=== PATIENT | male | born 1965 | race Caucasian/White ===

== ENCOUNTER 2022-05-18 12:28 | Emergency (ER) | payer BC ==
--- OUTSIDE RECORDS SUMMARY | 2022-05-18 12:31 | XMS REPORT | Continuity of Care Document ---
:[address] [facility] t Address [address] [place] [address] Care Team Providers Name Role Phone DR CRYSTAL TRUJILLO Attending Clinician Unavailable DR CRYSTAL TRUJILLO Admitting Clinician Unavailable Problems This patient has no known problems. Allergies, Adverse Reactions, Alerts Allergy Allergy Status Severity Reaction(s) Onset Inactive Treating Comm ents Source Name Type Date Date Clinician No Known DA Active [facility] Medications This patient has no known medications. Vital Signs Vital Name Observation Time Observation Value Comments Source Height 2020-12-30 04:23:00 180.34 CM Weight 2020-12-30 04:23:00 120.65 KG Height 2020-12-16 09:21:00 180.34 CM Weight 2020-12-16 09:21:00 117.93 KG Procedures Procedure Date / Time Performed Performing Clinician [facility] EXCISION OF LEFT 2020-12-30 00:00:00 Elisabet [facility] ical METATARSAL OPEN Center Encounters Start End Encounter Admission Attending Care Care Encounter Source Date/Time Date/Time Type Type Clinicians Facility Department ID 2020-12-30 2020-12-30 Outpatient Tonny TRUJILLO [facility]ny [place] [id number] Elisabet 03:57:00 06:07:00 CRYSTAL [facility] 2015-09-06 2015-09-06 Outpatient [facility] MHIE [id number] [address] 10:15:00 10:15:00 03 martinez Gaspar 2015-05-26 2015-05-26 Outpatient MHIE [facility]IE [id number] [facility] 11:00:00 11:00:00 02 martinez Gaspar 2015-04-29 2015-04-29 Outpatient [facility]IE [facility]IE [id number] [facility] 09:00:00 09:00:00 01 martinez Gaspar Results This patient has no known results.
--- NOTE | 2022-05-18 13:12 | RAD REPORT ---
EXAM DESCRIPTION: RAD - Chest Single View - 05/18/2022 12:57 pm CLINICAL HISTORY: cough, fever COMPARISON: None TECHNIQUE: AP portable chest image was obtained 05/18/2022 12:57 pm . FINDINGS: No focal mass consolidation. Interstitial markings are prominent with the baseline unknown . A mild viral infiltrate could be masked in this setting. No hilar mass or lymphadenopathy seen. Hea rt and vasculature are normal. No measurable pleural effusion and no pneumothorax. No acute bony abno rmality seen. No acute aortic findings suspected. IMPRESSION: No focal acute cardiopulmonary process. Prominence of the interstitial pattern on this baseline examination could mask minimal edema or infil trate.
[2022-05-18 13:25] LABS: SARS-COV-2 RT PCR NEGATIVE (NEGATIVE)
[2022-05-18] MEDS ORDERED: IBUPROFEN 400 MG TAB ONE (13:28)
[2022-05-18] MEDS ORDERED: dexAMETHasone 10 MG/ML VIAL ONE (13:28)
[2022-05-18] MEDS ORDERED: MAGNESIUM SULFATE 1 gm IVPB 1 GM/100 ML BAG IV ONE (13:29)
[2022-05-18] MEDS ORDERED: Ringers Lactate 1,000 ML IV ONE (13:29)
[2022-05-18] MEDS ORDERED: LEVALBUTEROL 1.25 MG/3 ML NEB ONE (13:29)
[2022-05-18 13:35] LABS: Absolute Lymphocytes (CBC) 1.4 K/uL (0.7-4.9); Hematocrit 43.3 % (39.6-49.0); MCV 95.8 fL (80-100); MPV 7.9 fL (7.6-11.3); RBC Red Blood Cell Count 4.51 M/uL (4.33-5.43)
[2022-05-18 13:55] LABS: Albumin 3.3 g/dL (3.4-5.0); Bilirubin Total 0.4 mg/dL (0.2-1.0); Potassium 4.2 mmol/L (3.5-5.1)
--- NOTE | 2022-05-18 14:41 | ER ---
Nurse's Notes [facility] [place], [place] Name: Joe Lucas Age: 56 yrs Sex: Male : 1965 Arrival Date: 05/18/2022 Time: 12:31 Bed 13 Private MD: Jagdish Manning E Diagnosis: Cough Presentation: 05/18 12:42 Chief complaint: Patient states: strong hacking cough x 3-4 weeks. Has been seen at [facility] twice and diagnosed with URI and bronchitis. Reports nothing has made the cough better and now is coughing so forcefully, it is making him vomit. Denies fever. Coronavirus screen: Vaccine status: Patient reports receiving the 2nd dose of the covid vaccine. Client denies travel out of the [place] in the last 14 days. Ebola Screen: Patient negative for fever greater than or equal to 101.5 degrees Fahrenheit, and additional compatible Ebola Virus Disease symptoms Patient denies exposure to infectious person. Patient denies travel to an Ebola-affected area in the 21 days before illness onset. Initial Sepsis Screen: Does the patient meet any 2 criteria? RR > 20 per min. HR > 90 bpm. Yes Does the patient have a suspected source of infection? No. Patient's initial sepsis screen is negative. Risk Assessment: Do you want to hurt yourself or someone else? Patient reports no desire to harm self or others. Onset of symptoms was April 26, 2022. 12:42 Method Of Arrival: Ambulatory [facility] 12:42 Acuity: ANTONIO 3 [facility] Triage Assessment: 12:44 General: Appears in no apparent distress. ill, Behavior is calm, cooperative. Pain: [facility] Complains of pain in chest Pain does not radiate. Pain currently is 6 out of 10 on a pain scale. Quality of pain is described as burning, aching, Pain began 3-4 weeks ago with cough. Respiratory: Reports cough that is pain with cough Airway is patent Respiratory effort is even, unlabored, Breath sounds are diminished the patient has mild shortness of breath. Historical: - Allergies: 12:44 No Known Allergies; [facility] - Home Meds: 12:44 Unable to obtain [Active]; kb3 - PMHx: 12:44 Hypertensive disorder; Hypercholesterolemia; Low-T; kb3 - PSHx: 12:44 Foot sx; kb3 - Immunization history:: Adult Immunizations up to date, Client reports receiving the 2nd dose of the Covid vaccine, Last tetanus immunization: unknown. - Social history:: Smoking status: Patient denies any tobacco usage or history of. Screenin:58 [facility] ED Fall Risk Assessment (Adult) History of falling in the last 3 months, db including since admission No falls in past 3 months (0 pts) Confusion or Disorientation No (0 pts) Intoxicated or Sedated No (0 pts) Impaired Gait No (0 pts) Mobility Assist Device Used No (0 pt) Altered Elimination No (0 pt) Score/Fall Risk Level 0 - 2 = Low Risk. Abuse screen: Denies threats or abuse. Denies injuries from another. Nutritional screening: No deficits noted. Tuberculosis screening: No symptoms or risk factors identified. Assessment: 13:58 Reassessment: Patient appears in no apparent distress at this time. Patient and/or db family updated on plan of care and expected duration. Pain level reassessed. Patient is alert, oriented x 3, equal unlabored respirations, skin warm/dry/pink. patient with cough and flu like symptoms x 1 month on antibiotics gradually getting worse. General: Appears in no apparent distress. comfortable, Behavior is calm, cooperative, appropriate for age, quiet. Pain: Denies pain. Neuro: No deficits noted. Neuro: Level of Consciousness is awake, alert, obeys commands, Oriented to person, place, time, situation, Appropriate for age. Cardiovascular: No deficits noted. Respiratory: Reports shortness of breath cough that is Breath sounds are diminished bilaterally. GI: No deficits noted. No signs and/or symptoms were reported involving the gastrointestinal system. : No deficits noted. No signs and/or symptoms were reported regarding the genitourinary system. EENT: No deficits noted. No signs and/or symptoms were reported regarding the EENT system. Derm: No deficits noted. No signs and/or symptoms reported regarding the dermatologic system. Vital Signs: 12:42 BP 151 / 87; Pulse 104; Resp 24; Temp 98.5; Pulse Ox 97% ; Weight 117.93 kg; Height 5 kb3 ft. 11 in. (180.34 cm); Pain 6/10; 13:00 BP 132 / 75; Pulse 88; Resp 18; Pulse Ox 94% on R/A; db 12:42 Body Mass Index 36.26 (117.93 kg, 180.34 cm) kb3 NIH Stroke Scale Scores: 12:50 NIHSS Score: 0 db ED Course: 12:31 Patient arrived in ED. as 12:31 Jagdish Manning MD is Private Physician. as 12:31 Devonte Bingham PA is PHCP. jmm 12:31 Devin Jeffries DO is Attending Physician. jmm 12:44 Triage completed. kb3 12:44 Arm band placed on right wrist. kb3 12:59 Chest Single View XRAY In Process Unspecified. EDMS 13:06 Evelyn Corral, RN is Primary Nurse. db 13:20 Inserted saline lock: 20 gauge in left antecubital area, using aseptic technique. Blood db collected. 13:20 First set of blood cultures drawn. db 13:40 Second set of blood cultures drawn by me. db 13:58 Bed in low position. Call light in reach. Side rails up X 1. Pulse ox on. NIBP on. db 13:58 No provider procedures requiring assistance completed. db 15:15 IV discontinued, intact, bleeding controlled, No redness/swelling at site. db Administered Medications: 13:30 Drug: Xopenex (levalbuterol) (3) 1.25 mg Route: Inhalation; db 15:00 Follow up: Response: No adverse reaction db 13:30 Drug: Decadron - Dexamethasone 10 mg Route: IVP; Site: left antecubital; db 15:26 Follow up: Response: No adverse reaction db 13:31 Drug: Ibuprofen 400 mg Route: PO; db 15:00 Follow up: Response: No adverse reaction db 13:35 Drug: Lactated Ringers Solution 1000 ml Route: IV; Rate: 1000 bolus; Site: left db antecubital; 15:26 Follow up: Response: No adverse reaction; IV Status: Completed infusion; IV Intake: db 1000ml 13:36 Drug: Magnesium Sulfate 1 grams Route: IVPB; Infused Over: 1 hrs; Site: left db antecubital; 15:00 Follow up: Response: No adverse reaction; IV Status: Completed infusion; IV Intake: db 100ml Medication: 13:58 VIS not applicable for this client. db Intake: 15:00 IV: 100ml; Total: 100ml. db 15:26 IV: 1000ml; Total: 1100ml. db Outcome: 14:40 Discharge ordered by . tatianna 15:15 Discharged to home ambulatory, with family. db 15:15 Condition: stable 15:15 Discharge instructions given to patient, significant other, Instructed on discharge instructions, Demonstrated understanding of instructions, Prescriptions given X 2. 15:21 Patient left the ED. mm9 NIH Stroke Scale - NIH Stroke Score Date: 05/18/2022 Time: 12:50 Total Score = 0 1a. Level of Consciousness (LOC) - 0(Alert) 1b. Level of Consciousness (LOC) (Month \T\ Age) - 0(Both) 1c. LOC Commands (Open \T\ Closes Eyes/Customer Engagement Representative) - 0(Both) 2. Best Gaze (Lateral Gaze Paresis) - 0(Normal) 3. Visual Field Loss - 0(No visual loss) 4. Facial Palsy - 0(Normal) 5a. Left Arm: Motor (10-second hold) - 0(No drift) 5b. Right Arm: Motor (10-second hold) - 0(No drift) 6a. Left Leg: Motor (5-second hold - always test supine) - 0(No drift) 6b. Right Leg: Motor (5-second hold - always test supine) - 0(No drift) 7. Limb Ataxia (finger/nose \T\ heel/herrera - test with eyes open) - 0(Absent) 8. Sensory Loss (pinprick arms/legs/face) - 0(Normal) 9. Best Language: Aphasia (description/naming/reading) - 0(No aphasia) 10. Dysarthria (speech clarity - read or repeat words) - 0(Normal) 11. Extinction and Inattention (visual/tactile/auditory/spatial/personal) - 0(No abnormality) Initials: db Signatures: Dispatcher [employer] EDMS Devonte Bingham PA PA jmm Martinez, Amelia as Shanna Yang RN RN kb3 Evelyn Corral, Isabel Qureshi RN mm9 Corrections: (The following items were deleted from the chart) 12:45 12:44 PSHx: None; kb3 kb3 12:47 12:42 BP 151 / 87; Pulse 104bpm; Resp 24bpm; Pulse Ox 97%; Temp 98.5F; 117.93 kb3 kg; Height 5 ft. 11 in.; BMI: 36.2; Pain 7/10; kb3
--- NOTE | 2022-05-18 14:41 | EDPHYS ---
Physician Documentation [facility] Name: Joe Lucas Age: 56 yrs Sex: Male : 1965 Arrival Date: 05/18/2022 Time: 12:31 Bed 13 Private MD: Jagdish Manning E ED Physician Devin Jeffries HPI: 05/18 12:32 This 56 yrs old Male presents to ER via Ambulatory with complaints of Cough, General jmm Weakness. 12:32 The patient or guardian reports. Onset: The symptoms/episode began/occurred gradually, jmm 2 day(s) ago. Is a 56-year-old male with history of hypertension hyperlipidemia the presents emerged part with complaints of cough, congestion. Approximately 4 weeks ago. Patient prescribed amoxicillin and steroids with no relief of symptoms. Patient was advised to go to the ED due to protracted symptoms.. Historical: - Allergies: 12:44 No Known Allergies; kb3 - Home Meds: 12:44 Unable to obtain [Active]; kb3 - PMHx: 12:44 Hypertensive disorder; Hypercholesterolemia; Low-T; kb3 - PSHx: 12:44 Foot sx; kb3 - Immunization history:: Adult Immunizations up to date, Client reports receiving the 2nd dose of the Covid vaccine, Last tetanus immunization: unknown. - Social history:: Smoking status: Patient denies any tobacco usage or history of. ROS: 12:32 Constitutional: Positive for body aches, chills. jmm 12:32 Respiratory: Positive for cough. 12:32 Abdomen/GI: Positive for nausea, diarrhea. 12:32 All other systems are negative. Exam: 12:32 Constitutional: This is a well developed, well nourished patient who is awake, alert, jmm and in no acute distress. Head/Face: atraumatic. Eyes: EOMI, no conjunctival erythema appreciated ENT: Moist Mucus Membranes Neck: Trachea midline, Supple Chest/axilla: Normal chest wall appearance and motion. Cardiovascular: Regular rate and rhythm. No edema appreciated Respiratory: Normal respirations, no respiratory distress appreciated Abdomen/GI: Non distended Back: Normal ROM Skin: General appearance color normal MS/ Extremity: Moves all extremities, no obvious deformities appreciated, no edema noted to the lower extremities Neuro: Awake and alert Psych: Behavior is normal, Mood is normal, Patient is cooperative and pleasant Vital Signs: 12:42 BP 151 / 87; Pulse 104; Resp 24; Temp 98.5; Pulse Ox 97% ; Weight 117.93 kg; Height 5 kb3 ft. 11 in. (180.34 cm); Pain 6/10; 13:00 BP 132 / 75; Pulse 88; Resp 18; Pulse Ox 94% on R/A; db 12:42 Body Mass Index 36.26 (117.93 kg, 180.34 cm) kb3 NIH Stroke Scale Scores: 12:50 NIHSS Score: 0 db MDM: 12:38 Patient medically screened. [facility] 14:39 Data reviewed: vital signs, nurses notes. Counseling: I had a detailed discussion with [facility] the patient and/or guardian regarding: the historical points, exam findings, and any diagnostic results supporting the discharge/admit diagnosis, lab results, radiology results, the need for outpatient follow up, to return to the emergency department if symptoms worsen or persist or if there are any questions or concerns that arise at home. 18:35 ED course: Labs and imaging studies were unremarkable.. [facility] 05/18 12:32 Order name: COVID-19/FLU A+B; Complete Time: 13:34 [facility] 05/18 12:44 Order name: CBC with Diff; Complete Time: 13:40 [facility] 05/18 12:44 Order name: CMP; Complete Time: 13:56 [facility] 05/18 12:44 Order name: Lactate w/ 2H reflex if indic.; Complete Time: 14:32 [facility] 05/18 12:44 Order name: Blood Culture Adult (2) [facility] 05/18 12:45 Order name: Chest Single View XRAY; Complete Time: 13:19 [facility] 05/18 12:44 Order name: Saline Lock; Complete Time: 13:57 [facility] Administered Medications: 13:30 Drug: Xopenex (levalbuterol) (3) 1.25 mg Route: Inhalation; db 15:00 Follow up: Response: No adverse reaction db 13:30 Drug: Decadron - Dexamethasone 10 mg Route: IVP; Site: left antecubital; db 15:26 Follow up: Response: No adverse reaction db 13:31 Drug: Ibuprofen 400 mg Route: PO; db 15:00 Follow up: Response: No adverse reaction db 13:35 Drug: Lactated Ringers Solution 1000 ml Route: IV; Rate: 1000 bolus; Site: left db antecubital; 15:26 Follow up: Response: No adverse reaction; IV Status: Completed infusion; IV Intake: db 1000ml 13:36 Drug: Magnesium Sulfate 1 grams Route: IVPB; Infused Over: 1 hrs; Site: left db antecubital; 15:00 Follow up: Response: No adverse reaction; IV Status: Completed infusion; IV Intake: db 100ml Disposition: 18:02 Co-signature as Attending Physician, Devin Jeffries DO Bhavna was immediately available on-site ms3 in the Emergency Department for consultation in the care of the patient. Disposition Summary: 05/18/22 14:40 Discharge Ordered Location: Home [facility] Condition: Stable [facility] Diagnosis - Cough [facility] Followup: [facility] - With: Private Physician - When: 2 - 3 days - Reason: Recheck today's complaints, Continuance of care, Re-evaluation by your physician Discharge Instructions: - Discharge Summary Sheet [facility] - Cough, Adult [facility] Forms: - Medication Reconciliation Form [facility] - Thank You Letter [facility] - Antibiotic Education [facility] - Prescription Opioid Use [facility] Prescriptions: - cefdinir 300 mg Oral capsule - take 1 capsule by ORAL route every 12 hours for 10 days; 20 capsule; Refills: [facility] 0, Product Selection Permitted - Bromfed DM 2-30-10 mg/5 mL Oral syrup - take 10 milliliter by ORAL route every 4 hours; 200 milliliter; Refills: 0, [facility] Product Selection Permitted NIH Stroke Scale - NIH Stroke Score Date: 05/18/2022 Time: 12:50 Total Score = 0 1a. Level of Consciousness (LOC) - 0(Alert) 1b. Level of Consciousness (LOC) (Month \T\ Age) - 0(Both) 1c. LOC Commands (Open \T\ Closes Eyes/Financial Aid Officer) - 0(Both) 2. Best Gaze (Lateral Gaze Paresis) - 0(Normal) 3. Visual Field Loss - 0(No visual loss) 4. Facial Palsy - 0(Normal) 5a. Left Arm: Motor (10-second hold) - 0(No drift) 5b. Right Arm: Motor (10-second hold) - 0(No drift) 6a. Left Leg: Motor (5-second hold - always test supine) - 0(No drift) 6b. Right Leg: Motor (5-second hold - always test supine) - 0(No drift) 7. Limb Ataxia (finger/nose \T\ heel/herrera - test with eyes open) - 0(Absent) 8. Sensory Loss (pinprick arms/legs/face) - 0(Normal) 9. Best Language: Aphasia (description/naming/reading) - 0(No aphasia) 10. Dysarthria (speech clarity - read or repeat words) - 0(Normal) 11. Extinction and Inattention (visual/tactile/auditory/spatial/personal) - 0(No abnormality) Initials: db Signatures: Dispatcher [employer] EDMS Devonte Bingham PA PA jmm Sims, Marcus, DO DO ms3 Shanna Yang, RN RN kb3 Evelyn Corral RN RN db Corrections: (The following items were deleted from the chart) 12:45 12:44 PSHx: None; kb3 kb3
[2022-05-18 15:35] VITALS: TEMP 98.5
[2022-05-18 15:40] VITALS: BP 132/75; O2SAT 94
== END 2022-05-18 15:21 | disposition home or self-care (01) ==
LOC: ER 12:28
DX: R05.9 Cough, unspecified (principal); R50.9 Fever, unspecified; Z20.822 Contact with and (suspected) exposure to COVID-19; I10 Essential (primary) hypertension
CPT/HCPCS: 96365; 87040 ×2; 85025; 36415; 83605; 80053; 0240U; 71045; 96375; 99284; J7614; J3475; J1100; J7120